=== PATIENT | female | born 1965 | race Caucasian/White ===

== ENCOUNTER 2018-03-02 08:08 | Day surgery (SDC) | payer OTHER ==
[~2018-03-02] VITALS: Ht 154.9 cm; Wt 69.8 kg
[~2018-03-02 08:08] MED LIST: LIPI10TA PO; LISI10 PO
[2018-03-02] MEDS ORDERED: ceFAZolin 2 GM PREMIX 50 ML IV SCH (08:30)
[2018-03-02] MEDS ORDERED: LORazepam 1 MG TAB SL SCH (08:30)
[2018-03-02] MEDS ORDERED: POVIDONE IODINE 5% (ANTISEPSIS KIT) 4 APPLICATIONS EACH NARE SCH (08:30)
[2018-03-02] MEDS ORDERED: CHLORHEXIDINE GLUCONATE 2 % 1 PACK (2 CLOTHS) TOPICAL SCH (08:30)
[2018-03-02 08:57] VITALS: BP 153/86; PULSE 93; RESP 18; TEMP 98; O2SAT 96
[2018-03-02] MEDS ORDERED: MUPIROCIN 2% OINT 1 APPLIC/GM SYR NASAL SCH (09:00)
[2018-03-02] MEDS ORDERED: APIX5TAB PO (09:02)
[2018-03-02] MEDS ORDERED: ATOR10TA15 PO (09:02)
[2018-03-02] MEDS ORDERED: LISI10TA3 PO (09:02)
[2018-03-02] MEDS ORDERED: MIDAZOLAM HCL 5 MG/ML VIAL (1 ML) ONE (10:13)
--- NOTE | 2018-03-02 11:03 | MP ---
cc: Ricardo Verma MD, Ryan R MD DATE OF OPERATION: 03/02/2018 PROCEDURE PERFORMED: Loop recorder removal. INDICATIONS FOR PROCEDURE: Mrs. Aj is a 52-year-old female with previous loop recorder inserted 3 years ago, generator end of life, who undergo loop recorder removal. The risks, the nature and the benefits of the procedure are clearly stated to her. Risks include infection, pneumothorax, cardiac perforation and even . She understood and agreed to proceed. PROCEDURE: After written informed consent was obtained, the patient was brought to the DOC unit where she was evaluated. Conscious sedation was initiated using intravenous Versed and intravenous fentanyl. Sedation was around 30-minute between sedation and recovery. Once sedation not verified, the left parasternal area was anesthetized with 2% Xylocaine. Using a #11 blade scalpel, a less than a cm incision was made. Subsequently, the loop was removed from the pocket. The borders were reapproximated using Dermabond and Steri-Strip. No incident to report. The patient tolerated the procedure. CONCLUSION: Successful [employer] loop recorder removal. COMMENT AND RECOMMENDATIONS: The patient is going to be discharged home later today. Ricardo Verma MD HS/DL , 10:41 AM , 11:02 AM
== END 2018-03-02 12:10 | disposition home or self-care (01) ==
LOC: HDOC 08:08 → HDIC 08:08 → HDOC 12:10
PROVIDERS: ATTEND Internal Medicine Interventional Cardiology
DX: Z45.09 Encounter for adjustment and management of other cardiac device (principal); I34.0 Nonrheumatic mitral (valve) insufficiency; I10 Essential (primary) hypertension; E78.5 Hyperlipidemia, unspecified
CPT/HCPCS: 33284; 99152; J0690; J2250; J3010